=== PATIENT | female | born 1980 ===

== ENCOUNTER 2018-03-22 08:58 | Outpatient (CLI) | payer SELFPAY | END 2018-03-22 08:59 | disposition home or self-care (01) | LOC: C.LAB 08:58 | DX: M06.09 Rheumatoid arthritis without rheumatoid factor, multiple sites (principal) ==

== ENCOUNTER 2018-07-05 10:38 | Outpatient (CLI) | payer SELFPAY | END 2018-07-05 10:39 | disposition home or self-care (01) | LOC: C.LAB 10:38 | DX: M06.09 Rheumatoid arthritis without rheumatoid factor, multiple sites (principal) ==